=== PATIENT | male | born 1950 | race Two or more races ===

== ENCOUNTER 2017-11-20 11:54 | Outpatient (CLI) | payer OTHER ==
[~2017-11-20 11:54] MED LIST: UROXATRAL10 MG PO
== END 2017-11-20 12:04 | disposition home or self-care (01) ==
LOC: RAD 11:54
DX: Z02.79 Encounter for issue of other medical certificate (principal)

== ENCOUNTER → 2018-12-02 07:17 | Outpatient (CLI) | payer OTHER | END | disposition home or self-care (01) | LOC: RAD 07:17 | DX: R07.89 Other chest pain (principal) ==

== ENCOUNTER 2020-03-15 06:00 | Outpatient (CLI) | payer OTHER | END 2020-03-15 15:20 | disposition home or self-care (01) | LOC: PPH VACUNA 06:00 | DX: Z23 Encounter for immunization (principal) | CPT/HCPCS: 90688; G0008 ==

== ENCOUNTER → 2020-07-25 | Outpatient (CLI) | payer OTHER | END | disposition home or self-care (01) | LOC: RAD 08:27 | PROVIDERS: ATTEND Specialist | DX: M17.12 Unilateral primary osteoarthritis, left knee (principal); T84.028A Dislocation of other internal joint prosthesis, initial encounter ==

== ENCOUNTER → 2020-12-01 | Outpatient (CLI) | payer OTHER ==
[~2020-12-01] MED LIST changes: +ATORVASTATIN CA10 MG PO; +CARDURA XL4 MG PO
== END | disposition home or self-care (01) ==
LOC: RAD 09:03
PROVIDERS: ATTEND Specialist
DX: Z02.79 Encounter for issue of other medical certificate (principal)

== ENCOUNTER 2020-12-22 06:00 | Day surgery (SDC) | payer OTHER | END 2020-12-22 11:50 | disposition home or self-care (01) | LOC: CIR.AMB 06:00 | PROVIDERS: ATTEND Surgery | DX: K40.90 Unilateral inguinal hernia, without obstruction or gangrene, not specified as recurrent (principal); Z20.822 Contact with and (suspected) exposure to COVID-19 ==

== ENCOUNTER 2021-03-24 08:00 | Outpatient (CLI) | payer OTHER | END 2021-03-24 08:30 | disposition home or self-care (01) | LOC: PPH VACUNA 08:00 | PROVIDERS: ATTEND Emergency Medicine Pediatric Emergency Medicine | DX: Z23 Encounter for immunization (principal) ==

== ENCOUNTER 2021-08-02 08:47 | Outpatient (CLI) | payer OTHER | END 2021-08-02 08:50 | disposition home or self-care (01) | LOC: NUCLEAR 08:47 | PROVIDERS: ATTEND Internal Medicine | DX: I20.1 Angina pectoris with documented spasm (principal) | CPT/HCPCS: 78454; 93017; A9500 ==

== ENCOUNTER 2021-08-02 09:04 | Outpatient (CLI) | payer OTHER | END 2021-08-02 09:05 | disposition home or self-care (01) | LOC: LAB 09:04 | PROVIDERS: ATTEND Internal Medicine | DX: U07.1 COVID-19 (principal); B34.1 Enterovirus infection, unspecified ==

== ENCOUNTER 2021-08-10 07:45 | Outpatient (CLI) | payer OTHER | END 2021-08-10 07:46 | disposition home or self-care (01) | LOC: NUCLEAR 07:45 | PROVIDERS: ATTEND Internal Medicine Cardiovascular Disease | DX: I20.1 Angina pectoris with documented spasm (principal) ==

== ENCOUNTER 2021-08-17 08:35 | Outpatient (CLI) | payer OTHER | END 2021-08-17 15:04 | disposition home or self-care (01) | LOC: RAD 08:35 | PROVIDERS: ATTEND Orthopaedic Surgery | DX: Z96.651 Presence of right artificial knee joint (principal); M17.12 Unilateral primary osteoarthritis, left knee; R93.6 Abnormal findings on diagnostic imaging of limbs ==

== ENCOUNTER 2021-11-23 09:38 | Outpatient (CLI) | payer OTHER | END 2021-11-23 10:00 | disposition home or self-care (01) | LOC: RAD 09:38 | PROVIDERS: ATTEND Specialist | DX: Z02.71 Encounter for disability determination (principal) ==

== ENCOUNTER 2022-04-20 13:10 | Outpatient (CLI) | payer OTHER | END 2022-04-20 13:50 | disposition home or self-care (01) | LOC: RAD 13:10 | PROVIDERS: ATTEND Orthopaedic Surgery | DX: M79.671 Pain in right foot (principal) ==

== ENCOUNTER 2022-06-27 09:26 | Outpatient (CLI) | payer OTHER | END 2022-06-27 09:40 | disposition home or self-care (01) | LOC: RAD 09:26 | PROVIDERS: ATTEND Orthopaedic Surgery | DX: Z96.651 Presence of right artificial knee joint (principal) ==

== ENCOUNTER → 2022-11-28 | Outpatient (CLI) | payer OTHER | END | disposition home or self-care (01) | LOC: RAD 11:12 | PROVIDERS: ATTEND Internal Medicine | DX: J22 Unspecified acute lower respiratory infection (principal) ==

== ENCOUNTER 2023-03-22 11:15 | Outpatient (CLI) | payer OTHER | END 2023-03-22 11:25 | disposition home or self-care (01) | LOC: PPH VACUNA 11:15 | PROVIDERS: ATTEND Emergency Medicine Pediatric Emergency Medicine | DX: Z23 Encounter for immunization (principal) | CPT/HCPCS: 90686; G0008 ==

== ENCOUNTER → 2023-08-15 | Outpatient (CLI) | payer OTHER ==
[~2023-08-15] MED LIST changes: +ARICEPT10 MG; +LIPITOR 10MG
== END | disposition home or self-care (01) ==
LOC: SONOGRAMA 10:00
PROVIDERS: ATTEND Urology
DX: R31.21 Asymptomatic microscopic hematuria (principal); N20.0 Calculus of kidney

== ENCOUNTER 2023-08-23 13:20 | Day surgery (SDC) | payer OTHER ==
[2023-08-19 07:50] LABS: HEMOGLOBIN 14.8 g/dL (13-16.00); MEAN CELL VOLUME 93.8 fL (80.0-100.00); MEAN CORPUSCULAR HEMOGLOBIN 32.3 pg (27.00-32.0); MEAN CORPUSCULAR HGB CONC 34.4 g/dl (32.0-36.0); PLATELET COUNT 217 K/uL (150-450); RED BLOOD COUNT 4.58 M/uL (4.00-6.00); RED CELL DISTRIBUTION WIDTH 13.9 % (11.5-14.5)
[2023-08-19 08:06] LABS: INR 1.01; PARTIAL THROMBOPLASTIN TIME 29.7 SECONDS (22.0-34.0); PROTHROMBIN TIME 10.6 SECONDS (9.0-11.5)
[2023-08-19 08:10] LABS: URINE APPEARANCE Clear; URINE BILIRRUBIN Negative (NEGATIVE); URINE BLOOD Negative; URINE COLOR Yellow; URINE GLUCOSE Negative (NEGATIVE); URINE LEUKOCYTE Small; URINE NITRATE Negative; URINE PROTEIN Negative (NEGATIVE); URINE UROBILINOGEN 0.2 E.U./dl
[2023-08-19 08:11] LABS: URINE EPITHELIAL CELLS 1.7 uL (0.0-38.8); URINE RBC 15.9 uL (0.0-20.8); URINE WBC 80.9 uL (0.0-23.2)
[2023-08-19 08:21] LABS: CALCIUM 9.2 mg/dL (8.5-10.1); CREATININE SERUM 0.76 mg/dL (0.70-1.30); GFR 101.1; POTASSIUM 4.32 mEq/L (3.5-5.1)
[2023-08-23] MEDS ORDERED: TAMSULOSIN HCL 0.4 MG CAP PO ONE ×2 (15:15→17:25)
[2023-08-23] MEDS ORDERED: PHENAZOPYRIDINE HCL 100 MG TABLET PO ONE ×2 (15:15→17:26)
[2023-08-23] MEDS ORDERED: IOVERSOL 320 MG/ML - 50 ML VIAL IV ONE (15:34)
[2023-08-23] MEDS ORDERED: CHLORHEXIDINE GLUCONATE 120 ML BOTTLE TOP ONE ×2 (15:34→16:00)
[2023-08-23] MEDS ORDERED: GENTAMICIN SULFATE 40 MG/ML VIAL ONE (15:41)
[2023-08-23] MEDS ORDERED: GENTAMICIN SULFATE 40 MG/ML VIAL IV SCH (16:00)
== END 2023-08-23 18:25 | disposition home or self-care (01) ==
LOC: CIR.AMB 13:20
PROVIDERS: ATTEND Urology
DX: N21.0 Calculus in bladder (principal); Z20.822 Contact with and (suspected) exposure to COVID-19

== ENCOUNTER 2024-04-06 10:05 | Outpatient (CLI) | payer OTHER | END 2024-04-06 11:00 | disposition home or self-care (01) | LOC: PPH VACUNA 10:05 | PROVIDERS: ATTEND Emergency Medicine Pediatric Emergency Medicine | DX: Z23 Encounter for immunization (principal) ==

== ENCOUNTER 2024-11-27 10:12 | Outpatient (CLI) | payer OTHER | END 2024-11-27 10:20 | disposition home or self-care (01) | LOC: RAD 10:12 | PROVIDERS: ATTEND Radiology Diagnostic Radiology | DX: R07.9 Chest pain, unspecified (principal) ==

== ENCOUNTER → 2025-02-24 07:52 | Outpatient (CLI) | payer OTHER | END | disposition home or self-care (01) | LOC: NUCLEAR 07:00 | PROVIDERS: ATTEND Internal Medicine Sports Medicine | DX: I20.9 Angina pectoris, unspecified (principal) | CPT/HCPCS: 78452; 93017; A9500 ==